=== PATIENT | female | born 1985 | race Caucasian/White ===

== ENCOUNTER 2016-07-16 18:25 | Emergency (ER) | payer OTHER ==
[2016-07-16 18:46] VITALS: BP 136/87
--- NOTE | 2016-07-16 19:08 | UC ---
Respiratory Complaint HPI - HPI Summary HPI Summary: 1 day of fever, cough, chest congestion body aches and sore throat - History of Current Complaint Chief Complaint: UCRespiratory Stated Complaint: FEVER, AND CHEST CONGESTION Time Seen by Provider: 07/16/16 18:51 Hx Obtained From: Patient Hx Last Menstrual Period: 2 wks ago ?: No Onset/Duration: Sudden Onset, Lasting Days - 1, Still Present Timing: Constant Severity Initially: Moderate Severity Currently: Moderate Character: Cough: Nonproductive Aggravating Factors: Nothing Alleviating Factors: OTC Meds Associated Signs And Symptoms: Positive: Fever, Chills, URI, Nasal Congestion - Allergies/Home Medications Allergies/Adverse Reactions: Allergies Allergy/AdvReac Type Severity Reaction Status Date / Time No Known Allergies Allergy Verified 07/16/16 18:47 Home Medications: Home Medications Ibuprofen TAB* [Advil TAB*] 07/16/16 [History] PMH/Surg Hx/FS Hx/Imm Hx Previously Healthy: No Psychological History Of: Reports: Anxiety - with panic attacks - Surgical History Surgical History: None - Family History Known Family History: Positive: None Family History: denies cardio vascular issues in family lineage - Social History Occupation: Unemployed Lives: With Family Alcohol Use: Occasionally Substance Use Type: None Smoking Status (MU): Current Every Day Smoker Have You Smoked in the Last Year: No - Immunization History Most Recent Influenza Vaccination: 04/22 Most Recent Tetanus Shot: 10/17/13 Most Recent Pneumonia Vaccination: unsure Review of Systems Constitutional: Fever, Chills, Fatigue Skin: Negative Eyes: Negative ENT: Negative Respiratory: Cough Cardiovascular: Negative Gastrointestinal: Negative Genitourinary: Negative Motor: Negative Neurovascular: Negative Musculoskeletal: Arthralgia, Myalgia Neurological: Negative Psychological: Negative All Other Systems Reviewed And Are Negative: Yes Physical Exam Triage Information Reviewed: Yes Appearance: No Pain Distress, Well-Nourished, Ill-Appearing - mild Vital Signs: Initial Vital Signs Temp 100.0 F 07/16/16 18:43 Pulse 106 07/16/16 18:43 Resp 18 07/16/16 18:43 BP 136/87 07/16/16 18:43 Pulse Ox 100 07/16/16 18:43 Vital Signs Reviewed: Yes Eye Exam: Normal Eyes: Positive: Conjunctiva Clear ENT Exam: Normal ENT: Positive: Normal ENT inspection, Hearing grossly normal, Pharynx normal, TMs normal. Negative: Nasal congestion, Nasal drainage, Tonsillar swelling, Tonsillar exudate, Trismus, Muffled/hoarse voice Neck exam: Normal Neck: Positive: Supple, Nontender, No Lymphadenopathy Respiratory Exam: Normal Respiratory: Positive: Chest non-tender, Lungs clear, Normal breath sounds, No respiratory distress, No accessory muscle use Cardiovascular Exam: Normal Cardiovascular: Positive: RRR, No Murmur, Pulses Normal, Brisk Capillary Refill Abdominal Exam: Normal Abdomen Description: Positive: Nontender, No Organomegaly, Soft. Negative: CVA Tenderness (R), CVA Tenderness (L) Bowel Sounds: Positive: Present Musculoskeletal Exam: Normal Musculoskeletal: Positive: Strength Intact, ROM Intact, No Edema Neurological Exam: Normal Neurological: Positive: Alert, Muscle Tone Normal Psychological Exam: Normal Skin Exam: Normal UC Diagnostic Evaluation - Laboratory O2 Sat by Pulse Oximetry: 100 Diagnostic Studies Comment: Influenza A(+) Respiratory Course/Dx - Course Course Of Treatment: Tamiflu, rest, ibuprofen, tylenol, increase fluids follow with pcp re-check prn - Differential Dx/Diagnosis Differential Diagnosis/HQI/PQRI: Bronchitis, Influenza, Laryngitis Provider Diagnoses: Influenza Discharge - Discharge Plan Condition: Stable Disposition: HOME Prescriptions: Oseltamivir Phosphate [Tamiflu] 75 mg PO BID #10 cap Patient Education Materials: Influenza (ED) Referrals: [facility] [place] [facility] REFERRAL [Outside] - If Needed No Primary Care Phys,NOPCP [Primary Care Provider] -
== END 2016-07-16 19:44 | disposition home or self-care (01) ==
LOC: UCEAST 18:25
DX: J10.1 Influenza due to other identified influenza virus with other respiratory manifestations (principal); F17.210 Nicotine dependence, cigarettes, uncomplicated
CPT/HCPCS: 87502; 87651; 99212; G0463

== ENCOUNTER 2018-11-10 14:56 | Emergency (ER) | payer OTHER ==
[2018-11-10 15:09] VITALS: BP 139/94
--- NOTE | 2018-11-10 15:17 | UC ---
Skin Complaint HPI - HPI Summary HPI Summary: 33-year-old female presents with complaints of redness and tenderness to her left knee. States yesterday she noticed what appeared to be a pimple. She tried to pop it. This morning she is noticed increased redness and tenderness to the skin over the knee. Denies fever, chills, joint pain, swelling, numbness , or tingling. - History of Current Complaint Chief Complaint: UCSkin Time Seen by Provider: 11/10/18 15:05 Stated Complaint: SOFT TISSUE COMPLAINT Hx Obtained From: Patient Hx Last Menstrual Period: 1 week Pain Intensity: 1 - Allergy/Home Medications Allergies/Adverse Reactions: Allergies Allergy/AdvReac Type Severity Reaction Status Date / Time No Known Allergies Allergy Verified 11/10/18 15:09 Home Medications: Home Medications LORazepam TAB(*) [Ativan 0.5 MG TAB (*)] 0.5 mg PO TID PRN 11/10/18 [History Confirmed 11/10/18] PMH/Surg Hx/FS Hx/Imm Hx Previously Healthy: Yes Psychological History: Anxiety - Surgical History Surgical History: None - Family History Known Family History: Positive: None Family History: denies cardio vascular issues in family lineage - Social History Occupation: Employed Full-time Lives: With Family Alcohol Use: Occasionally Substance Use Type: None Smoking Status (MU): Current Every Day Smoker Have You Smoked in the Last Year: No - Immunization History Most Recent Influenza Vaccination: 04/22 Most Recent Tetanus Shot: 10/17/13 Most Recent Pneumonia Vaccination: unsure Review of Systems All Other Systems Reviewed And Are Negative: Yes Constitutional: Negative: Fever, Chills Skin: Positive: Other - See HPI Respiratory: Positive: Negative Cardiovascular: Positive: Negative Gastrointestinal: Positive: Negative Genitourinary: Positive: Negative Musculoskeletal: Negative: Arthralgia, Decreased ROM, Edema Neurological: Positive: Negative Is Patient Immunocompromised?: No Physical Exam - Summary Physical Exam Summary: GENERAL APPEARANCE: Well developed, well nourished, alert and cooperative, and appears to be in no acute distress. CARDIAC: Normal S1 and S2. No S3, S4 or murmurs. Rhythm is regular. There is no peripheral edema, cyanosis or pallor. Extremities are warm and well perfused. Capillary refill is less than 2 seconds. Peripheral pulses intact. LUNGS: Clear to auscultation without rales, rhonchi, wheezing or diminished breath sounds. ABDOMEN: Positive bowel sounds. Soft, nondistended, nontender. No guarding or rebound. No masses or hepatosplenomegally. MUSKULOSKELETAL: ROM intact to all extremities. No joint erythema or tenderness. Normal muscular development. Normal gait. SKIN: Skin normal color, texture and turgor. 6 cm circular area of erythema without induration or fluctuance to the anterior right knee. Triage Information Reviewed: Yes Vital Signs: Initial Vital Signs Temp 99.6 F 11/10/18 15:06 Pulse 100 11/10/18 15:06 Resp 17 11/10/18 15:06 BP 139/94 11/10/18 15:06 Pulse Ox 100 11/10/18 15:06 Vital Signs Reviewed: Yes Course/Dx - Course Course Of Treatment: 33-year-old female presents with complaints of redness and tenderness to her left knee. States yesterday she noticed what appeared to be a pimple. She tried to pop it. This morning she is noticed increased redness and tenderness to the skin over the knee. Denies fever, chills, joint pain, swelling, numbness , or tingling. Afebrile. Vital signs stable. Patient have a 6 cm circular area of erythema without induration or fluctuance to the anterior right knee insistent with with a cellulitis. Will start her on cephalexin 500 mg 3 times a day for 7 days. She is to follow up with her primary care provider in 3-5 days if symptoms are not improving. Certainly guidance and warning symptoms were reviewed with the patient. Verbalizes understanding and agrees with plan of care. - Differential Diagnoses - Skin Complaint Differential Diagnoses: Abscess, Cellulitis, MRSA - Diagnoses Provider Diagnosis: Cellulitis of left knee Discharge - Sign-Out/Discharge Documenting (check all that apply): Patient Departure All imaging exams completed and their final reports reviewed: No Studies - Discharge Plan Condition: Stable Disposition: HOME Prescriptions: cephALEXin [Keflex] 500 mg PO TID #21 capsule Patient Education Materials: Cellulitis (ED) Referrals: No Primary Care Phys,NOPCP [Primary Care Provider] - Additional Instructions: You have a bacterial infection of the skin called cellulitis. We will start you on an antibiotic to treat the infection. Start cephalexin (Keflex) 500 mg three times a day for 7 days. Be sure to finish the entire course even if feeling better. Take acetaminophen (Tylenol) or ibuprofen (Advil, Motrin) according directions as needed for pain. Follow-up with your primary care provider in 3-5 days if symptoms are not improving. Seek immediate medical attention in the emergency room if you develop a fever greater than 100.5 F, have redness that continues to spread, red streaking up the leg, swelling of the knee, severe pain that is not managed with acetaminophen or ibuprofen, or any worsening of symptoms. - Billing Disposition and Condition Condition: STABLE Disposition: Home
== END 2018-11-10 15:25 | disposition home or self-care (01) ==
LOC: UCEAST 14:56
DX: L03.116 Cellulitis of left lower limb (principal); F41.9 Anxiety disorder, unspecified; F17.210 Nicotine dependence, cigarettes, uncomplicated
CPT/HCPCS: 99212; G0463